=== PATIENT | male | born 2000 | race African-American/Black ===

== ENCOUNTER 2023-12-30 12:15 | Emergency (ER) | payer OTHER ==
[2023-12-30 12:29] VITALS: BP 138/84; PULSE 90; RESP 18; TEMP 98.8; BMI 22.0
[2023-12-30] MEDS ORDERED: DIPHTH,PERTUSS(ACELL),TET 0.5 ML DISP.SYRIN IM ONE (13:32)
[2023-12-30] MEDS ORDERED: BACITRACIN ZINC 15 GM TUBE TOPICAL OINTMENT ONE (13:32)
[2023-12-30] MEDS ORDERED: IBUPROFEN 600 MG TABLET (FP) PO ONE (13:32)
[2023-12-30] MEDS: DIPHTH,PERTUSS(ACELL),TET 0.5 ML DISP.SYRIN IM ONE (13:43)
[2023-12-30] MEDS: IBUPROFEN 600 MG TABLET (FP) PO ONE (13:43)
== END 2023-12-30 15:35 | disposition home or self-care (01) ==
LOC: JERFT 12:15
PROC: 3E0234Z Introduction of Serum, Toxoid and Vaccine into Muscle, Percutaneous Approach (ICD-10-PCS; principal; 2023-12-30)
DX: S20.312A Abrasion of left front wall of thorax, initial encounter (principal); S80.812A Abrasion, left lower leg, initial encounter; T22.111A Burn of first degree of right forearm, initial encounter; R07.81 Pleurodynia; M25.552 Pain in left hip; V49.50XA Passenger injured in collision with unspecified motor vehicles in traffic accident, initial encounter; Y92.410 Unspecified street and highway as the place of occurrence of the external cause; Z23 Encounter for immunization
CPT/HCPCS: 71046-TC-FY; 71101-TC-LT-FY; 73502-TC-LT-FY; 73630-TC-LT; 90715; 99284-25